=== PATIENT | male | born 1955 | race Caucasian/White ===

== ENCOUNTER → 2016-07-06 | Outpatient (CLI) | payer OTHER ==
--- NOTE | 2016-07-06 13:14 | CT ---
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 Comparison: None. Technique: 1.25-mm axial multidetector helical CT imaging was performed through the chest while 90 mL Isovue-370 were injected intravenously without complication. The images were then transferred to an independent workstation where multiplanar and three-dimensional reconstructions were performed by th e interpreting physician and reviewed at multiple windows. Dose reduction techniques were utilized. CT Angiogram Findings: At the level of the right pulmonary artery, there is ectasia of the ascending aorta measuring 3.7 x 3.7 cm. Aortic root measures 3.5 cm. Tortuous descending aorta measures 2.5 cm. No aortic dissection. Heart is normal in size without pericardial effusion. CT Chest Findings: Left lower lateral thoracic chest wall mass measures 8 x 2.1 cm in axial dimension and 6 cm in cephalocaudal dimension involving the left 7th and 8th ribs in the mid axillary line wit h asymmetric thickening of the adjacent lateral muscle wall. There is a second mass anterior to the i nfraspinatus muscle on image 120 of series 2 measuring 3.4 x 1.7 cm. No significant mediastinal or hilar adenopathy. No significant axillary adenopathy. Bilateral peribronchial thickening with mild bronchiectasis throughout the upper and lower lobes. Ple uroparenchymal scarring in the right middle lobe. There is a bulla identified in the lingula measurin g 2.1 x 2.1 cm. Minimal linear scarring in bilateral lower lobe posterior basal segments also noted. No pleural effusion or pneumothorax. No suspicious pulmonary nodules. Impression: 1. Ectatic ascending aorta measuring 3.7 x 3.7 cm. No dissection. 2. No cardiomegaly or pericardial effusion. 3. Left lower lateral mid axillary chest wall mass measuring 8 x 2.1 cm, which appears to encase the left 7th and 8th ribs without associated rib destruction. A second smaller mass in the left mid axill aram subcutaneous region measuring 3.4 x 1.7 cm. This mass is nonspecific, but is suspicious for a yao coma, mesothelioma, or less likely metastasis. If there are no prior studies available for comparison , recommend ultrasound or CT-guided biopsy for further evaluation. Cosign: Dr. Parmjit Mason Findings and recommendations discussed with Dr. Floresita Gaona's dental assistant medical assistant at 1305 hours today. A test result has been communicated to a licensed care provider and documented in [employer], 1:08:16 PM , 07/06/2016, [employer] Message ID [id number].
== END ==
LOC: CIMAGING 11:24
PROVIDERS: ATTEND Internal Medicine Cardiovascular Disease
DX: I77.810 Thoracic aortic ectasia (principal); R91.8 Other nonspecific abnormal finding of lung field
CPT/HCPCS: 71275-PO

== ENCOUNTER 2016-07-14 07:28 | Day surgery (SDC) | payer OTHER ==
[2016-07-14] MEDS ORDERED: fentaNYL 100 MCG/2 ML INJ ONE (08:17)
[2016-07-14] MEDS ORDERED: MIDAZOLAM 2 MG/2 ML VIAL ONE (08:17)
[2016-07-14 08:22] LABS: HEMATOCRIT 41.1 % (40.0-51.0)
[2016-07-14 09:19] LABS: INR 0.95 (0.83-1.16); PROTIME(PATIENT) 12.6 SEC (12.0-15.0)
[2016-07-14 09:20] LABS: APTT 29.6 SEC (23.0-38.0)
[2016-07-14] MEDS ORDERED: LIDOCAINE 1% 30 ML SDV ONE (09:26)
--- NOTE | 2016-07-14 10:12 | DX ---
PA upright chest July 14, 2016, 0951 hours History: Immediate post core needle biopsy of extrathoracic and intrathoracic masses on the left. Findings: Pleural-based mass of left lateral hemithorax appears similar to property supervisor image of CT of 2016. No pneumothorax. Trace left pleural effusion is suspected. Right lung is clear, with no p leural effusion. Heart size is normal. Thoracic aorta is tortuous. Impression: No pneumothorax after core needle biopsy on the left.
--- NOTE | 2016-07-14 10:38 | US ---
Ultrasound-Guided Core Needle Biopsy of Two Masses of Left Hemithorax History: 2 masses of left hemithorax were discovered incidentally on a CT study of the thoracic aorta . Dr. Jagdeep Neal the request core needle biopsy Consent: Risks and benefits of the procedure were discussed in detail, and informed consent was obta ined. Patient accepted risks of internal bleeding, infection, pneumothorax requiring chest tube and hospitalization, and nondiagnostic sample. Medications: Intravenous conscious sedation and analgesia were given under my supervision. Vital sign s, pulse oximetry, and electrocardiogram were monitored. The patient received 1.5 milligrams of Verse d and 125 micrograms of fentanyl intravenously. Start time: 914. End time: 944. Technique: With the patient in right posterior oblique supine position, sonography was used to survey the left hemithorax. Visualization of target lesions was good with sonography, and CT was unnecessar y. The skin was prepped and draped in sterile fashion and 1% Xylocaine was used as local anesthetic. Separate needle systems and collection vials were used for sampling of the two targeted areas. For ul trasound imaging guidance, the transducer and cable were placed in a sterile cover, and sterile coupl ing gel was used. The more cephalad region of superficial chest wall was biopsied first, labeled #1 . 17-gauge guide needle was inserted into the lesion, allowing six coaxial 18-gauge core needle sampl es. These samples were initially collected in sterile saline. Five of these cores were placed in form lo, and one was placed in Hanks solution. Using a separate needle set, similar biopsy samples were obtained from the more inferior, intrathoracic lesion, labeled #2. Five samples were initially rinsed off into sterile saline, and four these were transferred to formalin, while one was transferred to H anks solution. Sterile dressings were applied. The patient tolerated the procedure well and was taken to diagnostic radiology for chest radiograph. Findings: The upper superficial lesion, located between serratus anterior and latissimus dorsi muscle s, measures 4.7 cm length x 3.9 cm transverse x 1.3 cm AP. The lesion is solid, hypoechoic, with mild heterogeneity of echoes, and slight lobulation of margin. Biopsy needle is in good position. The more inferior, intrathoracic lesion is biopsied by an intercostal approach. The needle tracks wit hin the lesion are documented sonographically. Impression: Ultrasound-guided core needle biopsies of two solid lesions of left hemithorax. - - - - - - - - - - - - - - - - - - - - - - - - - - - - - - - - - - - - - - - - - - - - (PQRS Measures: Current medications were listed in the medical record, including all known prescript ions, [id number] medications, herbal medications, and nutritional supplements. Tobacco Use: Non e. Prophylactic Antibiotic: Unnecessary. VTE Prophylaxis: Unnecessary.)
[2016-07-18 15:36] LABS: FINAL DIAGNOSIS See Comments (()); MICROSCOPIC DESCRIPTION See Comments (())
[2016-07-18 15:49] LABS: FINAL DIAGNOSIS See Comments (()); MICROSCOPIC DESCRIPTION See Comments (())
== END 2016-07-14 12:05 | disposition home or self-care (01) ==
LOC: FIMAGING 07:28
PROVIDERS: ATTEND Thoracic Surgery (Cardiothoracic Vascular Surgery)
PROC: 0W983ZX Drainage of Chest Wall, Percutaneous Approach, Diagnostic (ICD-10-PCS; 2016-07-14)
PROC: 0K9 Muscles, Drainage (ICD-10-PCS; principal; 2016-07-14 10:05)
DX: R91.8 Other nonspecific abnormal finding of lung field (principal); I10 Essential (primary) hypertension
CPT/HCPCS: 88184-90; 88185-91; J2250; J3010

== ENCOUNTER 2016-08-08 05:51 | Day surgery (SDC) | payer OTHER ==
[2016-08-08] MEDS ORDERED: LR 1,000 ML IV ONE (06:23)
[2016-08-08] MEDS ORDERED: LIDOCAINE 1% 5 ML SDV ID PRN (06:23)
[2016-08-08] MEDS ORDERED: BUPIVACAINE/EPI 0.25% 30 ML SDV ONE (06:57)
[2016-08-08] MEDS ORDERED: ceFAZolin 2 GM/DEXTROSE 100 ML IV ONE (07:00)
[2016-08-08] MEDS ORDERED: fentaNYL 100 MCG/2 ML INJ ONE (07:07)
[2016-08-08] MEDS ORDERED: PROPOFOL 200 MG/20 ML VIAL ONE (07:08)
[2016-08-08] MEDS ORDERED: MIDAZOLAM 2 MG/2 ML VIAL ONE (07:08)
[2016-08-08 07:10] LABS: CHOLESTEROL 138 mg/dL (140-220); CHOLESTEROL/HDL RATIO 2.71 RATIO (1.00-4.97); HIGH DENSITY LIPOPROTEIN 51 mg/dL (40-65); LDL/HDL RATIO 1.55 RATIO (1.00-3.64); LOW DENSITY LIPOPROTEIN 79 mg/dL (80-100); NON-HIGH DENSITY LIPOPROTEIN 87 mg/dL (90-129); TRIGLYCERIDE 42 mg/dL (40-150); VERY LOW DENSITY LIPOPROTEINS 8 mg/dL (8-25)
[2016-08-08] MEDS ORDERED: ONDANSETRON 4 MG/2 ML VIAL ONE (07:10)
[2016-08-08] MEDS ORDERED: KETOROLAC 30 MG/1 ML SDV ONE (07:10)
[2016-08-08] MEDS ORDERED: SKIN ADHESIVE (DERMABOND) 1 EACH TP ONE (07:58)
--- NOTE | 2016-08-08 09:34 | DX ---
AP Upright Chest August 08, 2016 Reason for examination: Follow up port placement; comparison to the prior study July 14, 2016. Findings: There has been interval placement of a right subclavian port with the tip projecting over t he superior vena cava near the cavoatrial junction. No pneumothorax is seen. Findings are otherwise s table. Soft tissue mass laterally in the lower left chest is unchanged. Impression: No complication is identified following right subclavian port placement.
[2016-08-08] MEDS ORDERED: KETOROLAC 30 MG/1 ML SDV IVP ONE (10:00)
--- NOTE | 2016-08-08 10:28 | DX ---
Fluoroscopy: 34.4 seconds, 7.59 mGy, of fluoroscopy was utilized by Dr. Shin for port placement. 2. Digital radiographs show a right subclavian port in position.
--- NOTE | 2016-08-08 11:36 | GOP ---
[f rep st] OPERATIVE REPORT DATE OF OPERATION: 08/08/2016 SURGEON: Jerrod Shin MD GLOBAL SOURCING MANAGER: None. ANESTHESIA: General endotracheal. ANESTHESIOLOGIST: Loki Beebe DO PREOPERATIVE DIAGNOSIS: Mantle cell lymphoma. POSTOPERATIVE DIAGNOSIS: Mantle cell lymphoma. PROCEDURE PERFORMED: Ultrasound and fluoroscopic-guided power port placement via right internal jugu lar vein. FINDINGS: Successful placement of low-profile power port via the IJ. Port flushed and withdrew appr opriately. SPECIMENS: None. ESTIMATED BLOOD LOSS: 5 cc. DESCRIPTION OF PROCEDURE: The patient was greeted in the preoperative suite. Once again, risks, franko efits, and alternatives were discussed. Consent was signed. He was then brought back to the operati ve suite, placed on the OR table in the supine position. After all anesthesia machines, including SC Ds, were on and functioning, a World Health Organization time-out was performed. General endotrachea l anesthesia was then induced without incident and the patient's right neck was then prepped and drap ed in typical sterile fashion. Antibiotics were given on-call to the operating room. Using ultrasou nd guidance, I successfully accessed the right internal jugular vein and threaded my guide wire under fluoroscopic guidance. Once successfully there, I created a pocket approximately 2 fingerbreadths b elow the clavicle in the midclavicular line using electrocautery. I then tunneled my catheter from t he port site up to the internal jugular stick site. I then threaded the peel-away sheath into the in ternal jugular vein and threaded the catheter appropriately into it. Under fluoroscopic guidance, I appropriately positioned it and removed the peel-away sheath. I then attached the port itself to the underlying fascia of the chest wall using multiple interrupted Prolene sutures to prevent twisting. I closed the skin in layers with an interrupted 3-0 Vicryl and a running 4-0 Monocryl, over which De rmabond was placed. The patient was then extubated and taken from the operative suite to the PACU in satisfactory condition. Counts: All counts were reported as correct x2. A chest x-ray was perform ed in the PACU which showed satisfactory placement without any apparent complications. COMPLICATIONS: None. /[id number]/MODL
== END 2016-08-08 10:12 | disposition home or self-care (01) ==
LOC: FSGY 05:51
PROVIDERS: ATTEND Surgery
PROC: 02HV33Z Insertion of Infusion Device into Superior Vena Cava, Percutaneous Approach (ICD-10-PCS; principal; 2016-08-08 07:15)
PROC: 0JH60XZ Insertion of Tunneled Vascular Access Device into Chest Subcutaneous Tissue and Fascia, Open Approach (ICD-10-PCS; principal; 2016-08-08 07:15)
DX: C85.80 Other specified types of non-Hodgkin lymphoma, unspecified site (principal); I35.1 Nonrheumatic aortic (valve) insufficiency; I10 Essential (primary) hypertension
CPT/HCPCS: C1788; J0690; J1885; J2250; J2405; J2704; J3010

== ENCOUNTER 2016-09-09 13:28 | Inpatient (IN) | payer OTHER ==
[2016-09-09] MEDS ORDERED: ONDANSETRON DISINTEGRATING 4 MG TAB PO PRN (17:51)
[2016-09-09] MEDS ORDERED: ONDANSETRON 4 MG/2 ML VIAL IVP PRN (17:51)
[2016-09-09] MEDS ORDERED: oxyCODONE IR 5 MG TAB PO PRN (17:51)
--- NOTE | 2016-09-09 18:37 | GHP ---
[f rep st] HISTORY AND PHYSICAL DATE OF ADMISSION: 09/09/2016 CHIEF COMPLAINT: Lymphoma, thrombocytopenia. HISTORY OF PRESENT ILLNESS: This is a 61-year-old male with a recent diagnosis of lymphoma. He und erwent a 2nd round of chemotherapy, which included Rituxan and another chemotherapy agent. Last anita e he did have problems with hyponatremia with this and rash, but it occurred a couple of weeks after wards. He had blood work done today, which showed a platelet level of 17 and a sodium level of 121. He has also had some nausea, no vomiting. He has had decreased p.o. intake. No diarrhea. No fev ers or chills. He noticed a rash on his lower extremity, which prompted his visit to the Oncology C enter thus the labs. His platelets yesterday were 200 and they dropped to 17 today. He does admit to a slight headache. He rates it at about a 2, but it is persistent in the frontal area of his hea d. No vision changes or weakness. REVIEW OF SYSTEMS: A 10-point review of systems was obtained and was negative. PAST MEDICAL HISTORY: 1. Lymphoma. 2. Aortic insufficiency. 3. I believe a thoracic aneurysm. MEDICATIONS: Reviewed. SOCIAL HISTORY: No smoking, or alcohol. Works as a design engineer. FAMILY HISTORY: No history of lymphoma. PHYSICAL EXAM: VITAL SIGNS: Afebrile, blood pressure is 117/80, heart rate 60, oxygen saturation 9 8% on room air. GENERAL: The patient is well developed, no apparent distress. HEENT: Nonicteric sclerae. Extraocular movements intact. Moist mucous membranes. NECK: Supple. No thyromegaly. L UNGS: Good effort. Clear to auscultation bilaterally. CARDIOVASCULAR: Regular rate and rhythm. No murmurs, rubs, or gallops. ABDOMEN: Positive bowel sounds. Soft, nontender, nondistended. No hepatosplenomegaly. EXTREMITIES: No clubbing, cyanosis, or edema. SKIN: Petechial type rash that is coalescing in his lower extremities. NEUROLOGIC: Alert and oriented x3. 5/5 strength. Moving all 4 extremities equally. PSYCH: Normal mood and affect. LABS: White count 6, hemoglobin 12, platelets are 17 which was repeated from previous at 21 yesterd ay and platelets were 209. Sodium 121, yesterday it was 132, creatinine 0.9. Total bilirubin was 1 .7. AST 102, ALT 204. ASSESSMENT: This is a 61-year-old male with a history of lymphoma, status post chemotherapy yesterd ay, presenting with thrombocytopenia and hyponatremia and elevated liver function tests. PLAN: 1. Thrombocytopenia such a marked drop in platelets suggesting some type of autoimmune phenomena. At this point he is not bleeding. Will avoid transfusion. Oncology will see the patient in the mor evelyn. 2. Hyponatremia, probably a combination of volume depletion. Probably some element of SIADH. We w ill place patient on fluid restriction and check urine sodium. Will give some IV fluids overnight t o see what his sodium does. 3. Elevated liver function tests. Probably related to chemotherapy as well and will get an abdomin al ultrasound, though. 4. Mild headache, although unlikely. Because of the headache and thrombocytopenia, we will go ahea d and get a CT scan of his head. CODE STATUS: Patient is full code. ADMISSION: The patient will be admitted under a full admission status. Old records reviewed and summarized in the HPI. /[id number]/MODL
[2016-09-09] MEDS: LORazepam 2 MG/ML INJ IVP PRN (20:42)
[2016-09-10] MEDS: NS 1,000 ML IV SCH ×2 (05:33→16:52)
[2016-09-10 05:48] LABS: % IMMATURE GRANULYOCYTES 0.7 % (0.0-1.1); ABSOLUTE IMMATURE GRANULOCYTES 0.01 10^3/uL (0.00-0.10); ADD DIFF? NO; ADD MORPH? NO; ADD SCAN? YES; ATYPICAL LYMPHOCYTE FLAG 0 (0-99); FRAGMENT RBC FLAG 0 (0-99); HEMATOCRIT 32.2 % (40.0-51.0); HEMOGLOBIN 11.6 g/dL (13.7-17.5); LEFT SHIFT FLG 20 (0-99); LIPEMIA HEMOLYSIS FLAG 90 (0-99); MEAN CELL VOLUME 86.1 fL (81.5-99.8); PLATELET CLUMPS FLAG 10 (0-99); RED BLOOD CELL COUNT 3.74 10^6/uL (4.40-6.38); RED CELL DISTRIBUTION WIDTH 14.1 % (11.5-15.2)
[2016-09-10 05:54] LABS: PLATELET COUNT < 3.0 10^3/uL (150-400)
[2016-09-10 05:59] LABS: INR 1.05 (0.83-1.16); PROTIME(PATIENT) 13.6 SEC (12.0-15.0)
[2016-09-10 06:00] LABS: APTT 27.5 SEC (23.0-38.0)
[2016-09-10 06:05] LABS: ALANINE AMINOTRANSFERASE 144 IU/L (21-72); ALBUMIN 2.4 g/dL (3.5-5.0); ALKALINE PHOSPHATASE 75 IU/L (38-126); ANION GAP 5 mEq/L (8-16); ASPARTATE AMINOTRANSFERASE 58 IU/L (17-59); BILIRUBIN,TOTAL 1.2 mg/dL (0.1-1.4); CALCIUM 8.1 mg/dL (8.5-10.4); CARBON DIOXIDE 25 mEq/l (22-31); CHLORIDE 101 mEq/L (97-110); CREATININE 0.7 mg/dL (0.7-1.3); GLOMERULAR FILTRATION RATE > 60; GLUCOSE 79 mg/dL (70-100); POTASSIUM 4.2 mEq/L (3.5-5.2); SODIUM 131 mEq/L (134-144); TOTAL PROTEIN 4.7 g/dL (6.3-8.2)
[2016-09-10] MEDS: ACETAMINOPHEN 325 MG TAB PO PRN ×2 (06:20→16:50)
[2016-09-10] MEDS: diphenhydrAMINE 25 MG CAP PO PRN ×2 (06:21→16:50)
[2016-09-10 06:26] LABS: SCAN NEGATIVE
[2016-09-10 06:27] LABS: PLATELET ESTIMATE DECREASED (ADEQ)
[2016-09-10] MEDS ORDERED: POLYETHYLENE GLYCOL 3350 17 GM PKT PO PRN (11:29)
[2016-09-10] MEDS ORDERED: LACTULOSE 20 GM/30 ML UDCUP PO PRN (11:29)
[2016-09-10] MEDS ORDERED: MAGNESIUM HYDROXIDE 30 ML UDCUP PO PRN (11:29)
--- NOTE | 2016-09-10 11:53 | GCON ---
[f rep st] CONSULTATION DATE OF CONSULTATION: 09/10/2016 HISTORY OF PRESENT ILLNESS: The patient is a pleasant 61-year-old gentleman, who is followed by my partner, Dr. Richard Alexis. He was diagnosed with stage IIA miles marginal zone lymphoma in [facility] of this year. He has been receiving treatment with Rituxan and bendamustine. He received his fir st cycle of therapy on August 11 and . He developed treatment related acute on chronic hypon atremia, with a serum sodium of 119 at that time, he also developed treatment related thrombocytopen ia with a platelet lin in the 30s. He had no bleeding issues and was not hospitalized following h is first treatment. He was given his second cycle of rituximab and bendamustine on September 08. He received cycle 2, day 1 at that time. He returned yesterday to the clinic to receive cycle 2, day 2 bendamustine. A CBC was drawn, which revealed a white count of 6.9, a hemoglobin of 12.1, with a platelet count of 17,00 0. His serum sodium was 121. He was admitted for further management. He denies any significant bleeding. He did note petechiae that formed over his ankles yesterday. H e denies fevers or chills. He denies headache. He denies visual disturbance. He denies nausea or vomiting. He denies skin rash. He was given normal saline hydration overnight. His serum sodium has improved significantly as a re sult. He received platelet transfusion approximately 90 minutes ago. His is at the bedside. PAST MEDICAL HISTORY: 1. Recent diagnosis of marginal zone lymphoma, as outlined above. 2. Aortic insufficiency. 3. Chronic hyponatremia. 4. Graves disease. 5. 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 SOCIAL HISTORY: The patient is a nonsmoker, he drinks alcohol rarely. He is to [employer]. He works as a civilian technician. REVIEW OF SYSTEMS: As above. PHYSICAL EXAM: GENERAL: Patient is resting comfortably in bed. He is in no acute distress. HEENT : Pupils equal. Sclerae nonicteric. Oropharynx is clear, with no visible petechiae or purpura. N o thrush. HEART: Regular, without murmur. LUNGS: Clear bilaterally. ABDOMEN: Soft, nontender, nondistended. Spleen is nonpalpable. EXTREMITIES: The patient has no extremity swelling or edema. He does have visible petechiae surrounding his ankles on both sides. No visible ecchymoses. NEUR O: He is alert, oriented and appropriate. IMAGING: Abdominal ultrasound done yesterday, reveals hepatosplenomegaly. Head CT done yesterday, reveals no evidence of bleeding. LABORATORY DATA: Blood count from today: White count 1.4, hemoglobin 11.6, platelet count is less than 3000. Absolute neutrophil count is 930. Sodium 131, potassium 4.2, chloride 101, bicarb 25, B UN 13, creatinine 0.7, calcium 8.1, AST 58, ALT 144, alk phos 75. IMPRESSION: 1. Marginal zone lymphoma, status post second cycle of Rituxan and bendamustine. 2. Chemotherapy-induced thrombocytopenia (direct marrow toxicity versus autoimmune). 3. Chemotherapy-induced neutropenia. 4. Acute on chronic hyponatremia. The patient is a pleasant 61-year-old gentleman with marginal zone lymphoma, who recently received h is second cycle of Rituxan and bendamustine therapy. He is admitted with severe thrombocytopenia an d hyponatremia. The temporal course of his thrombocytopenia suggests a possible autoimmune etiology. The patient do es have both a personal and family history of other autoimmune diseases, making this a possibility. This is not generally associated with either rituximab or bendamustine, so is somewhat atypical. Tanya aguillon has been given a platelet transfusion. Fortunately, he has no clinically significant bleeding. I will check a 1 hour posttransfusion platelet count, and will also repeat a platelet count in the [facility]. If he does not respond to platelet transfusion, we may need to institute steroid therapy. He has no evidence of ongoing infection. He has expected chemotherapy-induced neutropenia. He will be monitored closely. His hyponatremia has resolved with saline infusion. He appears to have mild chronic hyponatremia on review of prior labs. I did not think he requires a fluid restriction at this time. This will be discontinued. His electrolytes will be rechecked in the morning. The severity of his recent response to treatment suggests he may need to change regimens. This will be left to his primary oncologist, Dr. Alexis. I will notify him of this admission. Our service will continue to follow the patient. If his platelets and electrolytes are stable tomor row, he could potentially be discharged with outpatient oncology followup. His questions were answe red. The plan was discussed with the patient and nursing. Total time for today's visit was approximately 35 minutes, of which greater than 50% was spent in co unseling and care coordination. /[id number]/MODL
[2016-09-10 12:01] LABS: PLATELET COUNT < 3.0 10^3/uL (150-400)
[2016-09-10] MEDS: SENNOSIDES/DOCUSATE SODIUM TAB PO SCH ×2 (12:46→21:13)
[2016-09-10 13:07] LABS: PLATELET ESTIMATE DECREASED (ADEQ)
[2016-09-10] MEDS ORDERED: OXYMETAZOLINE 30 ML NASAL SPRAY EACHNARE PRN (13:42)
[2016-09-10] MEDS: AMINOCAPROIC ACID 500 MG TAB PO SCH ×2 (14:12→21:20)
--- NOTE | 2016-09-10 15:40 | HOSPPROG ---
Hospitalist Progress Note Assessment/Plan: The patient is a 61-year-old male with history of lymphoma, on chemotherapy who was admitted for severe thrombocytopenia. 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 Discussed w/ Dr. Chen. Starting prednisone 60mg daily x 2 doses and gave an additional 1u platelets this evening for persistent epistaxis. -Soaked Afrin in cotton ball and plugged his nose w/ it to help stop bleeding. -Saving Rhino rocket as a last resort for bleeding - not recommended as bleeding is mostly from low platelets. Spoke w/ air and hydronic balancing technician ENT PA - said cautery or other procedures are contraindicated for this patient. -RN to page physician for any changes in status - hypotension/tachycardia/ bleeding/weakness/faintness. VTE prophylaxis: Cannot tolerate secondary to severe thrombocytopenia. GI prophylaxis: Protonix. Code status: Full. Status: inpatient for greater than 2 midnight stay. Disposition: Med surge, cannot anticipate discharge at this time. Sixty total minutes of kapz-jr-pdry time with the patient/family members and floor time with other physicians/PAs, RNs, >50% of which was spent counseling and coordinating patient care. ____ SUBJECTIVE: Patient developed spontaneous epistaxis this afternoon. OBJECTIVE: Physical Exam: General: The patient is a middle-aged, overweight male who is alert and in no acute distress. HEENT: normocephalic, extraocular movements intact, conjunctivae clear, Nares with bloody drainage, oral mucosa pink and moist. No bleeding of gingiva. Neck: trachea midline, no visible masses, no external lesions. CV: +S1/S2, RRR, no MRG. Resp: unlabored, CTAB no RRW. Abd: soft and nondistended. nontender. Musculoskeletal: Normal gait. Normal muscle tone and bulk. Neuro: cranial nerves II XII grossly intact. Intact gross motor and sensory function. Psych: appropriate mood/affect. Skin: + mild pallor. + petechiae over lower legs and on back. Labs/Imaging/Other Tests: Personally reviewed/interpreted. Objective: Vital Signs Temp Pulse Resp BP Pulse Ox 36.5 C 6 L 16 115/78 96 09/10/16 12:06 09/10/16 12:06 09/10/16 12:06 09/10/16 12:06 09/10/16 12:06 Laboratory Results 09/10/16 11:15 09/10/16 05:40 09/09/16 09/10/16 09/11/16 05:59 05:59 06:59 Intake Total 1500 Output Total 2900 1800 Balance -1400 -1800 PT 13.6 SEC (12.0-15.0) 09/10/16 05:40 INR 1.05 (0.83-1.16) 09/10/16 05:40 ICD10 Worksheet Patient Problems: Problems Problem Status Onset Thrombocytopenia Acute - ICD10 Problem Qualifiers (1) Thrombocytopenia
[2016-09-10] MEDS: predniSONE 20 MG TAB PO SCH (17:26)
[2016-09-10] MEDS: PANTOPRAZOLE SODIUM 40 MG TAB PO SCH (17:26)
[2016-09-10] MEDS: LORazepam 2 MG/ML INJ IVP PRN (21:14)
[2016-09-11] MEDS: AMINOCAPROIC ACID 500 MG TAB PO SCH ×3 (05:20→21:06)
[2016-09-11 05:25] LABS: ADD DIFF? YES; ADD MORPH? NO; ADD SCAN? NO; ATYPICAL LYMPHOCYTE FLAG 60 (0-99); FRAGMENT RBC FLAG 0 (0-99); HEMATOCRIT 31.3 % (40.0-51.0); HEMOGLOBIN 11.4 g/dL (13.7-17.5); LEFT SHIFT FLG 20 (0-99); LIPEMIA HEMOLYSIS FLAG 90 (0-99); MEAN CELL HEMOGLOBIN 30.5 pg (27.9-34.1); MEAN CELL HEMOGLOBIN CONCENTR. 36.4 g/dL (32.4-36.7); MEAN CELL VOLUME 83.7 fL (81.5-99.8); PLATELET CLUMPS FLAG 10 (0-99); RED BLOOD CELL COUNT 3.74 10^6/uL (4.40-6.38); RED CELL DISTRIBUTION WIDTH 13.8 % (11.5-15.2)
[2016-09-11 05:37] LABS: PLATELET COUNT < 3.0 10^3/uL (150-400)
[2016-09-11 05:40] LABS: ANION GAP 8 mEq/L (8-16); CALCIUM 8.5 mg/dL (8.5-10.4); CARBON DIOXIDE 24 mEq/l (22-31); CHLORIDE 101 mEq/L (97-110); CREATININE 0.7 mg/dL (0.7-1.3); GLOMERULAR FILTRATION RATE > 60; GLUCOSE 110 mg/dL (70-100); POTASSIUM 4.5 mEq/L (3.5-5.2); SODIUM 133 mEq/L (134-144)
[2016-09-11 06:52] LABS: PLATELET ESTIMATE DECREASED (ADEQ)
[2016-09-11] MEDS: predniSONE 20 MG TAB PO SCH (08:47)
[2016-09-11] MEDS: SENNOSIDES/DOCUSATE SODIUM TAB PO SCH ×2 (08:47→21:07)
[2016-09-11] MEDS: PANTOPRAZOLE SODIUM 40 MG TAB PO SCH (08:48)
--- NOTE | 2016-09-11 12:19 | SOAPPROG ---
SOAP Progress Note Assessment/Plan: Assessment: 1) Marginal Zone Lymphoma (s/p 2 cycle Rituxan/Bendamustine) 2) Rituxan induced acute autoimmune thrombocytopenia 3) Acute on chronic hyponatremia (Bendamustine induced) 4) Chemotherapy induced Neutropenia 5) HTN 6) Epistaxis secondary to #2 Plan: Patient's platelets remain < 3k. His epistaxis has stopped after nasal packing/ Afrin/Amicar and a second platelet transfusion. Will leave packing in place today. Will continue Amicar for now. Wing[place] further platelet transfusion for active bleeding. He appears to have Rituxan induced ITP which should be self limited and resolve in 3 - 5 days. I have started Prednisone, though it is unclear whether this will have any impact on the rate of resolution of his thrombocytopenia. I have recommended Zarxio for his chemo induced neutropenia. He agrees, and it is started today. No evidence of infection. Hyponatremia essentially resolved. He does have chronic mild hyponatremia. He is back to baseline. I will restart his Lisinopril. He will need to remain inpatient until platelets improve. Above discussed with patient, , nursing, hospitalist service. 09/11/16 12:12 Subjective: No further epistaxis. Nasal packing in place. No fevers. at bedside. Objective: Vital Signs Temp Pulse Resp BP Pulse Ox 36.7 C 55 L 18 146/82 H 96 09/11/16 09:12 09/11/16 09:12 09/11/16 09:12 09/11/16 09:12 09/11/16 09:12 Laboratory Results 09/11/16 05:00 09/11/16 05:20 09/10/16 09/11/16 09/12/16 04:59 05:59 05:59 Intake Total Output Total Balance PT 13.6 SEC (12.0-15.0) 09/10/16 05:40 INR 1.05 (0.83-1.16) 09/10/16 05:40 - Time Spent With Patient Time Spent With Patient: 35 minutes Physical Exam - Physical Exam General Appearance: alert, no apparent distress EENT: other (Nasal packing in Left nostril. No active epistaxis) Respiratory: lungs clear, normal breath sounds Cardiac/Chest: regular rate, rhythm Abdomen: non-tender, soft Skin: other (Peticchiae bilateral ankles) Neuro/Psych: no motor/sensory deficits, alert, normal mood/affect ICD10 Worksheet Patient Problems: Problems Problem Status Onset Thrombocytopenia Acute
[2016-09-11] MEDS: LISINOPRIL 2.5 MG TAB PO SCH (12:40)
[2016-09-11] MEDS: FILGRASTIM-SNDZ 480 MCG/0.8 ML SYR SC SCH (14:46)
[2016-09-11] MEDS ORDERED: OXYMETAZOLINE 30 ML NASAL SPRAY EACHNARE PRN (19:06)
--- NOTE | 2016-09-11 19:14 | HOSPPROG ---
Hospitalist Progress Note Assessment/Plan: The patient is a 61-year-old male with history of lymphoma, on chemotherapy who was admitted for severe thrombocytopenia. 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 Discussed w/ Dr. Chen. May get additional 1u plts if pt experiences bleeding. -Soaked Afrin in cotton ball and plugged his nose w/ it to help stop bleeding. Keeping it in his nose until platelet level recovers. May redo packing if epistaxis recurs. -Save Rhino rocket as a last resort for bleeding - not recommended as bleeding is mostly from low platelets. -RN to page physician for any changes in status - hypotension/tachycardia/ bleeding/weakness/faintness. VTE prophylaxis: Cannot tolerate secondary to severe thrombocytopenia. GI prophylaxis: Protonix. Code status: Full. Status: inpatient for greater than 2 midnight stay. Disposition: Med surge, cannot anticipate discharge at this time. 30 total minutes of neyv-ho-hotk time with the patient/family members and floor time with other physicians/PAs, RNs, >50% of which was spent counseling and coordinating patient care. ____ SUBJECTIVE: Patient did not rebleed overnight. Feels well today. OBJECTIVE: Physical Exam: General: The patient is a middle-aged, overweight male who is alert and in no acute distress. HEENT: normocephalic, extraocular movements intact, conjunctivae clear, Nares with packing, oral mucosa pink and moist. No bleeding of gingiva. Neck: trachea midline, no visible masses, no external lesions. CV: +S1/S2, RRR, no MRG. Resp: unlabored, CTAB no RRW. Abd: soft and nondistended. nontender. Musculoskeletal: Normal gait. Normal muscle tone and bulk. Neuro: cranial nerves II XII grossly intact. Intact gross motor and sensory function. Psych: appropriate mood/affect. Skin: + mild pallor. + petechiae over lower legs and on back. Labs/Imaging/Other Tests: Personally reviewed/interpreted. Objective: Vital Signs Temp Pulse Resp BP Pulse Ox 36.4 C 62 16 128/82 H 95 09/11/16 16:32 09/11/16 16:32 09/11/16 16:32 09/11/16 16:32 09/11/16 16:32 Laboratory Results 09/11/16 05:00 09/11/16 05:20 09/10/16 09/11/16 09/12/16 04:59 05:59 05:59 Intake Total 3500 Output Total 3500 Balance 0 PT 13.6 SEC (12.0-15.0) 09/10/16 05:40 INR 1.05 (0.83-1.16) 09/10/16 05:40 ICD10 Worksheet Patient Problems: Problems Problem Status Onset Thrombocytopenia Acute - ICD10 Problem Qualifiers (1) Thrombocytopenia
[2016-09-11] MEDS: LORazepam 2 MG/ML INJ IVP PRN (22:45)
[2016-09-12] MEDS: AMINOCAPROIC ACID 500 MG TAB PO SCH ×3 (06:30→22:40)
[2016-09-12 06:59] LABS: % IMMATURE GRANULYOCYTES 1.5 % (0.0-1.1); ABSOLUTE IMMATURE GRANULOCYTES 0.12 10^3/uL (0.00-0.10); ADD DIFF? NO; ADD MORPH? NO; ADD SCAN? YES; ATYPICAL LYMPHOCYTE FLAG 0 (0-99); FRAGMENT RBC FLAG 0 (0-99); HEMATOCRIT 31.3 % (40.0-51.0); HEMOGLOBIN 11.6 g/dL (13.7-17.5); LIPEMIA HEMOLYSIS FLAG 90 (0-99); MEAN CELL HEMOGLOBIN 30.9 pg (27.9-34.1); MEAN CELL HEMOGLOBIN CONCENTR. 37.1 g/dL (32.4-36.7); MEAN CELL VOLUME 83.2 fL (81.5-99.8); PLATELET CLUMPS FLAG 10 (0-99); RED BLOOD CELL COUNT 3.76 10^6/uL (4.40-6.38); RED CELL DISTRIBUTION WIDTH 13.8 % (11.5-15.2)
[2016-09-12 07:01] LABS: LEFT SHIFT FLG 240 (0-99)
[2016-09-12 07:03] LABS: PLATELET COUNT 9 10^3/uL (150-400)
[2016-09-12 07:25] LABS: SCAN POSITIVE
[2016-09-12 07:34] LABS: PLATELET ESTIMATE DECREASED (ADEQ)
[2016-09-12] MEDS: SENNOSIDES/DOCUSATE SODIUM TAB PO SCH ×2 (09:37→22:40)
[2016-09-12] MEDS: PANTOPRAZOLE SODIUM 40 MG TAB PO SCH (09:38)
[2016-09-12] MEDS: LISINOPRIL 2.5 MG TAB PO SCH (09:38)
--- NOTE | 2016-09-12 11:51 | SOAPPROG ---
SOAP Progress Note Assessment/Plan: Assessment/Plan: 61 yo man w marginal zone lymphoma s/p 2 cycles of BR Presented w severe thrombocytopenia & epistaxis; also w acute on chronic hyponatremia, HTN 1. Thrombocytopenia - presumed 2/2 Rituxan induced ITP No response to platelets/prednisone as predicted Platelets up today to 9,000 Denies new bleeding Still has left nare packed If platelets trend up over 10,[address], anticipate d/c in next 1- 2 days will need repeat CBC within 2 days of discharge 2. Hyponatremia - improved chemo likely exacerbated chronic HypoNa (bendamustine) Have resumed lisinopril 3. Neutropenia - remains on growth factro and can likely d/c tomorrow 4. marginal zone lymphoma - will discuss further therapy as outpt 09/12/16 11:53 Subjective: Small ecchymoses on right forearm but nothing else new as far as bleeding eating well no new complaints Objective: Vital Signs Temp Pulse Resp BP Pulse Ox 36.6 C 61 12 122/82 H 96 09/12/16 07:49 09/12/16 07:49 09/12/16 07:49 09/12/16 09:38 09/12/16 07:49 Laboratory Results 09/12/16 06:30 09/11/16 05:20 09/11/16 09/12/16 09/13/16 05:59 05:59 05:59 Intake Total 4250 1100 Output Total 6900 Balance -2650 1100 PT 13.6 SEC (12.0-15.0) 09/10/16 05:40 INR 1.05 (0.83-1.16) 09/10/16 05:40 Gen - NAD\ HEENT - anicteric, left nare packed, no epistaxis, no mucosal bleeding CV - RRR Lungs - clear Abd - soft, NT Ext - no edema; petechiae noted on bilateral LE Neuro - nonfocal ICD10 Worksheet Patient Problems: Problems Problem Status Onset Thrombocytopenia Acute
[2016-09-12] MEDS: FILGRASTIM-SNDZ 480 MCG/0.8 ML SYR SC SCH (15:01)
--- NOTE | 2016-09-12 17:04 | HOSPPROG ---
Hospitalist Progress Note Assessment/Plan: 61-year-old gentleman with epistaxis and thrombocytopenia. The thrombocytopenia is likely secondary to rituximab. He is status post nasal packing and has had no further bleeding and current platelet count is 7000. Patient new to me today - severe thrombocytopenia probably secondary to rituximab. -lymphoma status post Rituxan and bendamustin -Hyponatremia improving - abnormal LFTs Plan: Will recheck his platelet count in the a.m. and if his platelets are rising he can be discharged. Packing will be removed in the a.m. to assure that there is no bleeding at the time of discharge. Subjective: No complaints and no epistaxis at this time. He has some bloody drainage in the back of his throat. No cough shortness of breath or chest pain nausea or vomiting Objective: Vital Signs Temp Pulse Resp BP Pulse Ox 36.4 C 67 15 120/78 95 09/12/16 15:11 09/12/16 15:11 09/12/16 15:11 09/12/16 15:11 09/12/16 15:11 Laboratory Results 09/12/16 06:30 09/11/16 05:20 09/11/16 09/12/16 09/13/16 05:59 05:59 05:59 Intake Total 4250 1100 Output Total 6900 Balance -2650 1100 PT 13.6 SEC (12.0-15.0) 09/10/16 05:40 INR 1.05 (0.83-1.16) 09/10/16 05:40 - Time Spent With Patient Time Spent with Patient: greater than 35 minutes Time Spent with Patient: Greater than 35 minutes spent on this patients care, greater than 50% of time spent counseling, educating, and coordinating care regarding the above mentioned plan. - Physical Exam Constitutional: no apparent distress Eyes: PERRL, other Ears, Nose, Mouth, Throat: moist mucous membranes, other (Bloody mucus discharge in the back of the throat. No signs of active bleeding nasal packing is in place without bleeding) Cardiovascular: regular rate and rhythym, no murmur, rub, or gallop Respiratory: no respiratory distress, no rales or rhonchi Gastrointestinal: normoactive bowel sounds, soft, non-tender abdomen, no palpable masses Skin: warm Neurologic: AAOx3, CN II-XII Intact ICD10 Worksheet Patient Problems: Problems Problem Status Onset Thrombocytopenia Acute
[2016-09-12] MEDS: ACETAMINOPHEN 325 MG TAB PO PRN (22:40)
[2016-09-12] MEDS: LORazepam 2 MG/ML INJ IVP PRN (23:06)
[2016-09-13] MEDS: AMINOCAPROIC ACID 500 MG TAB PO SCH (06:21)
[2016-09-13 06:39] LABS: ABSOLUTE NRBC COUNT 0.05 10^3/uL (0-0.01); ADD DIFF? YES; ADD MORPH? NO; ATYPICAL LYMPHOCYTE FLAG 0 (0-99); FRAGMENT RBC FLAG 0 (0-99); HEMATOCRIT 32.9 % (40.0-51.0); HEMOGLOBIN 11.9 g/dL (13.7-17.5); LIPEMIA HEMOLYSIS FLAG 90 (0-99); MEAN CELL HEMOGLOBIN 31.2 pg (27.9-34.1); MEAN CELL HEMOGLOBIN CONCENTR. 36.2 g/dL (32.4-36.7); MEAN CELL VOLUME 86.1 fL (81.5-99.8); NRBC-AUTO% 0.4 % (0.0-0.2); PLATELET CLUMPS FLAG 0 (0-99); RED BLOOD CELL COUNT 3.82 10^6/uL (4.40-6.38); RED CELL DISTRIBUTION WIDTH 14.4 % (11.5-15.2)
[2016-09-13 06:44] LABS: ADD SCAN? NO; LEFT SHIFT FLG 300 (0-99)
[2016-09-13 06:45] LABS: PLATELET COUNT 14 10^3/uL (150-400)
[2016-09-13 07:26] LABS: POLYCHROMASIA 1+
[2016-09-13 07:27] LABS: PLATELET ESTIMATE DECREASED (ADEQ)
[2016-09-13 07:45] VITALS: BP 110/80; PULSE 70; RESP 18; TEMP 98.7; O2SAT 96
[2016-09-13] MEDS: LISINOPRIL 2.5 MG TAB PO SCH (08:11)
[2016-09-13] MEDS: SENNOSIDES/DOCUSATE SODIUM TAB PO SCH (08:11)
[2016-09-13] MEDS: PANTOPRAZOLE SODIUM 40 MG TAB PO SCH (08:11)
--- NOTE | 2016-09-13 12:42 | GDS ---
[f rep st] DISCHARGE SUMMARY ADMISSION DIAGNOSES: 1. Acute thrombocytopenia, believed probably secondary to Rituxan. 2. Lymphoma, currently having completed the second round of chemotherapy which included Rituxan. 3. Hyponatremia. 4. Aortic insufficiency. CONSULTATIONS: With Oncology. PROCEDURES: Transfusion of 2 units of leukocyte-reduced platelets. HOSPITAL COURSE: A 61-year-old male, with a recent diagnosis of lymphoma, who had undergone a secon d round of chemotherapy with Rituxan and was noted to have severe thrombocytopenia. Platelet count was noted to be less than 3000. He was given 2 units of platelets, but probably did not augment his platelets secondary to this transfusion. He had severe epistaxis, and underwent nasal packing with Afrin-soaked swabs. This was successful in abating his epistaxis. He was also given a dose of pre dnisone 60 mg orally for the possibility of an immune ITP. Over the course of his 3-day hospitaliza tion his platelet count marques from less than 3000 to 14,000. With the nasal packing he had no recurr ence of his epistaxis. The nasal packing was removed, and he had no recurrent nasal bleeding. DISCHARGE MEDICATIONS: These will include his home medications without changes, and are as follows: Vitamin B complex, [place]-3 fatty acids, multivitamins, lisinopril 2.5 mg at night. He will contin ue his chemotherapy, glucosamine and chondroitin capsules, vitamin C, and Tylenol. PLAN: The gentleman is discharged to home in home care. He will follow up with Dr. Alexis in the next 3-5 days. He has been instructed that if he has any further bleeding to use Afrin nasal spray . But if he again has more bleeding he should return to the emergency department. TIME: Time of this discharge required 40 minutes, greater than 50% to pre parole counseling aide and coordinate care. /[id number]/MODL
== END 2016-09-13 12:29 | disposition home or self-care (01) | DRG 813 ==
LOC: F1N 16:00
PROVIDERS: ADMIT Internal Medicine; ATTEND Internal Medicine
PROC: 30233R1 Transfusion of Nonautologous Platelets into Peripheral Vein, Percutaneous Approach (ICD-10-PCS; principal; 2016-09-09)
PROC: 2Y41X5Z Packing of Nasal Region using Packing Material (ICD-10-PCS; 2016-09-10)
DX: D69.59 Other secondary thrombocytopenia (principal); C85.80 Other specified types of non-Hodgkin lymphoma, unspecified site; E87.1 Hypo-osmolality and hyponatremia; T45.1X5A Adverse effect of antineoplastic and immunosuppressive drugs, initial encounter; D70.1 Agranulocytosis secondary to cancer chemotherapy; R04.0 Epistaxis
CPT/HCPCS: P9035; Q5101-ZA

== ENCOUNTER 2016-10-11 18:13 | Emergency (ER) | payer OTHER ==
--- NOTE | 2016-10-11 18:34 | EDPHY ---
H & P Stated Complaint: CHEMO WITH RESULTANT LOW PLATELETS Time Seen by Provider: 10/11/16 18:33 HPI/ROS: CHIEF COMPLAINT: [ ] HISTORY OF PRESENT ILLNESS: [Need 4: Location, Duration, Severity, Quality, Context, Timing Modifying Factors, Associated S&S] REVIEW OF SYSTEMS: A comprehensive 10 point review of systems is otherwise negative aside from elements mentioned in the history of present illness. Source: Patient Exam Limitations: No limitations - Personal History Current Tetanus/Diphtheria Vaccine: Yes - Medical/Surgical History Hx Asthma: No Hx Chronic Respiratory Disease: No Hx Diabetes: No Hx Cardiac Disease: Yes Hx Renal Disease: No Hx Cirrhosis: No Hx Alcoholism: No Hx HIV/AIDS: No Hx Splenectomy or Spleen Trauma: No Other PMH: Non-Hodgkins Lymphoma, HTN, ascending aortic aneurysm, aortic valve insufficiency/reguritation, Graves Disease, arthritis, anthroscopic orthopedic procedures - Social History Smoking Status: Never smoked - Physical Exam Exam: General Appearance: [Alert, no distress] Eyes: [Pupils equal and round no pallor or injection] ENT, Mouth: [Mucous membranes moist] Respiratory: [There are no retractions, lungs are clear to auscultation] Cardiovascular: [Regular rate and rhythm] Gastrointestinal: [Abdomen is soft and nontender, no masses, bowel sounds normal] Neurological: [A&O, normal motor function, normal sensory exam, normal cranial nerves] Skin: [Warm and dry, no rashes] Musculoskeletal: [Neck is supple nontender] Extremities: [symmetrical, full range of motion] Psychiatric: [Patient is oriented X 3, there is no agitation] Constitutional: Initial Vital Signs Temperature (C) 36.7 C 10/11/16 18:19 Heart Rate 70 10/11/16 18:19 Respiratory Rate 18 10/11/16 18:19 Blood Pressure 134/85 H 10/11/16 18:19 O2 Sat (%) 96 10/11/16 18:19 O2 Delivery Mode Room Air Allergies/Adverse Reactions: No Known Allergies Allergy (Verified 10/11/16 18:18) Home Medications: Medication Instructions Recorded Lisinopril [Zestril 2.5 mg (*)] 2.5 mg PO HS 10/23/15 Acetaminophen [Tylenol 325mg (*)] 325 - 650 mg PO Q6HRS PRN 09/09/16 Ascorbic Acid [Vitamin C 500 mg 500 mg PO BID 09/09/16 (*)] Glucosam/Chondr/Collagn/Hyalur 2 each PO BID 09/09/16 [Glucosamine & Chondroitin Cap] Iv Chemotherapy 0 mg IV AD 09/09/16 Multivitamins [Multivitamin (*)] 1 each PO DAILY AT 6PM 09/09/16 [place]-3S/Dha/Epa/Fish Oil [Fish 1,200 mg PO BID 09/09/16 Oil 1,200 mg Softgel] Vit B Comp/C/FA/Iron/Vit E 1 each PO DAILY AT 6PM 09/09/16 [Vitamin B Complex Tablet] Departure - Departure Referrals: Alfredito Grove MD [Primary Care Provider] - As per Instructions
--- NOTE | 2016-10-11 18:44 | EDPHY ---
HPI/HX/ROS/PE/MDM Narrative: CHIEF COMPLAINT: Low platelets. HISTORY OF PRESENT ILLNESS: The patient is a 61 year old male with history of marginal zone lymphoma who was sent here to have platelet transfusion. The patient received partial chemotherapy yesterday and the rest today. During both chemo sessions the patient experienced back pain that improved after Benadryl and a heating pad. Yesterday, the patient's platelets were 131,000. Today, prior to leaving, the patient had a blood draw demonstrated platelets of 3000. He was sent here to have a platelet transfusion. No fever, nausea, vomiting, body aches, or bloody stool. The patient noticed some mild bruising after the blood draw. The patient was hospitalized for low platelets last month. He denies chest pain, shortness of breath, palpitations, urinary complaints, headache, or lightheadedness. Of note, the patient's platelet count did not respond well last month following transfusions. REVIEW OF SYSTEMS: Aside from elements discussed in the HPI, a comprehensive 10-point review of systems was reviewed and is negative. PAST MEDICAL HISTORY: Marginal zone lymphoma, Aortic valve regurgitation, Enlarged aorta, Hypertension, Graves disease, Arthritis. SOCIAL HISTORY: Lives with at home. VITAL SIGNS: Reviewed by me GENERAL: Well-developed, well-nourished, resting comfortably in no respiratory distress. HEENT: Atraumatic. Eyes: No icterus, no injection. Mouth: moist mucous membranes. No erythema or lesions. Neck: supple with no adenopathy. LUNGS: Clear to auscultation bilaterally, no wheezes, rhonchi or rales. CARDIAC: Regular rate and rhythm, no rubs, murmurs or gallops. ABDOMEN: Soft, nontender, nondistended, bowel sounds normal. BACK: No CVA tenderness. EXTREMITIES: No trauma. No edema. Range of motion is normal throughout. Some petechia in lower extremities. NEURO: Alert and oriented, grossly nonfocal. SKIN: Warm and dry, no rash. PSYCHIATRIC: Normal mentation, no agitation. Portions of this note were transcribed by a medical record administrator. I personally performed a history, physical exam, medical decision making, and confirmed accuracy of information the transcribed note. ED Course: The patient is a 61 year old male with history of marginal zone lymphoma who was sent here to have a platelet transfusion. The patient received partial chemotherapy yesterday and the rest today. His platelet count yesterday was 131, 000 yesterday and it dropped to 3,000. Plan to consult Oncologist. Lab work is ordered. The patient is receiving platelets. Na is 134. Platelet count is 6. 2024: I spoke to Dr. Grimes, Oncology. Patient with strongly prefer to be discharged home. He does understand that is platelet count of 3000 could lead to significant hemorrhage, intra-abdominal hemorrhage, intracranial hemorrhage, and life-threatening bleeding. He understands that admission to the hospital as a reasonable plan. However, he would like to be discharged home. He is with his . They understand the risks. He will be following up tomorrow with [facility] for repeat blood draw. Patient is well aware of warning signs to include nausea, vomiting, blood in the urine, dark stools, blood in the stools, nose bleed, lightheadedness, dizziness, chest pain, shortness of breath. He was discharged from the emergency department to follow up as directed above. MDM: 61-year-old male presenting with low platelets. Patient did received 2 units of platelets. He was offered admission to the hospital but declined. He understands the risks inherent thrombocytopenia. My differential includes thrombocytopenia secondary to chemotherapy, active hemorrhage, lab abnormalities, bone marrow suppression. - Data Points Laboratory Results: Laboratory Results 10/11/16 18:45 10/11/16 18:45 Medications Given: Discontinued Medications Heparin Sodium (Porcine) (Heparin Lock Flush) 500 unit IVP EDNOW ONE Stop: 10/11/16 21:41 Last Admin: 10/11/16 21:40 Dose: 500 unit General Time Seen by Provider: 10/11/16 18:33 Initial Vital Signs: Initial Vital Signs Temperature (C) 36.7 C 10/11/16 18:19 Heart Rate 70 10/11/16 18:19 Respiratory Rate 18 10/11/16 18:19 Blood Pressure 134/85 H 10/11/16 18:19 O2 Sat (%) 96 10/11/16 18:19 O2 Delivery Mode Room Air Allergies/Adverse Reactions: No Known Allergies Allergy (Verified 10/11/16 18:18) Home Medications: Medication Instructions Recorded Lisinopril [Zestril 2.5 mg (*)] 2.5 mg PO HS 10/23/15 Acetaminophen [Tylenol 325mg (*)] 325 - 650 mg PO Q6HRS PRN 09/09/16 Ascorbic Acid [Vitamin C 500 mg 500 mg PO BID 09/09/16 (*)] Iv Chemotherapy 0 mg IV AD 09/09/16 Multivitamins [Multivitamin (*)] 1 each PO DAILY AT 6PM 09/09/16 [place]-3S/Dha/Epa/Fish Oil [Fish 1,200 mg PO BID 09/09/16 Oil 1,200 mg Softgel] Vit B Comp/C/FA/Iron/Vit E 1 each PO DAILY AT 6PM 09/09/16 [Vitamin B Complex Tablet] Prednisone 10/13/16 Departure - Departure Disposition: Home, Routine, Self-Care Clinical Impression: Thrombocytopenia Condition: Good Instructions: Thrombocytopenia (ED) Additional Instructions: 1. Please have repeat blood draw tomorrow morning. 2. Return to the Emergency Department if you have active bleeding, new, or worsening symptoms. Referrals: Alfredito Grove MD [Primary Care Provider] - As per Instructions AndRichard stokes MD [Medical Doctor] - As per Instructions (Follow-up tomorrow without fail.) Report Scribed for: Ivett Fernandez Report Scribed by: Cely Rachel Date of Report: 10/11/16 Time of Report: 18:46
[2016-10-11 19:01] LABS: ABSOLUTE IMMATURE GRANULOCYTES 0.16 10^3/uL (0.00-0.10); ABSOLUTE NRBC COUNT 0.02 10^3/uL (0-0.01); ADD DIFF? NO; ADD MORPH? NO; ADD SCAN? NO; ATYPICAL LYMPHOCYTE FLAG 0 (0-99); FRAGMENT RBC FLAG 0 (0-99); HEMATOCRIT 35.7 % (40.0-51.0); HEMOGLOBIN 12.5 g/dL (13.7-17.5); LEFT SHIFT FLG 30 (0-99); LIPEMIA HEMOLYSIS FLAG 90 (0-99); MEAN CELL HEMOGLOBIN 31.6 pg (27.9-34.1); MEAN CELL VOLUME 90.4 fL (81.5-99.8); NRBC-AUTO% 0.3 % (0.0-0.2); PLATELET CLUMPS FLAG 0 (0-99); RED BLOOD CELL COUNT 3.95 10^6/uL (4.40-6.38); RED CELL DISTRIBUTION WIDTH 16.8 % (11.5-15.2)
[2016-10-11 19:07] LABS: PLATELET COUNT 6 10^3/uL (150-400)
[2016-10-11 19:12] LABS: ANION GAP 9 mEq/L (8-16); CALCIUM 8.8 mg/dL (8.5-10.4); CARBON DIOXIDE 23 mEq/l (22-31); CHLORIDE 102 mEq/L (97-110); CREATININE 0.6 mg/dL (0.7-1.3); GLOMERULAR FILTRATION RATE > 60; GLUCOSE 140 mg/dL (70-100); POTASSIUM 4.1 mEq/L (3.5-5.2); SODIUM 134 mEq/L (134-144)
[2016-10-11 19:23] LABS: TROPONIN I < 0.012 ng/mL (0-0.034)
[2016-10-11 19:45] LABS: PLATELET ESTIMATE DECREASED (ADEQ)
[2016-10-11 21:39] VITALS: BP 140/100; PULSE 60; RESP 16; TEMP 98.6; O2SAT 98
== END 2016-10-11 21:41 | disposition home or self-care (01) ==
DX: D69.6 Thrombocytopenia, unspecified (principal); I10 Essential (primary) hypertension
CPT/HCPCS: 96374; 99284; P9035; J1642

== ENCOUNTER → 2017-11-22 | Outpatient (CLI) | payer OTHER | LOC: FIMAGING 09:20 | PROVIDERS: ATTEND Internal Medicine | DX: Z13.820 Encounter for screening for osteoporosis (principal); M85.89 Other specified disorders of bone density and structure, multiple sites ==